=== PATIENT | female | born 2000 | race Caucasian/White ===

== ENCOUNTER 2024-12-13 16:08 | Outpatient (CLI) | payer OTHER, SELFPAY | END 2024-12-13 16:09 | disposition home or self-care (01) | LOC: AMB 12-14 10:48 | PROVIDERS: Visit Provider Family Medicine | DX: R11.2 Nausea with vomiting, unspecified (principal); R19.7 Diarrhea, unspecified | CPT/HCPCS: A0425; A0433 ==

== ENCOUNTER 2024-12-13 16:59 | Emergency (ER) | payer OTHER, SELFPAY ==
[2024-12-13] VITALS (11 sets, daily range): BP systolic 81–100; BP diastolic 51–70; PULSE 98–109; RESP 20; TEMP 36.6; O2SAT 94–97; BMI 19.0
--- OUTSIDE RECORDS SUMMARY | 2024-12-13 17:08 | XMS_ITS | Clinical Summary ---
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 For routine questions regarding patient records, call [phone] during business hours, M-F 8:00 AM - 5:00 PM Central Time. Record requests for emergency care only can be directed to [phone] at any time.[facility] Allergies No known active allergies Medications Low-Ogestrel, 28, 0.3-30 mg-mcg per tablet Take 1 tablet by mouth daily. Active Immunizations Immunization Administration Dates Next Due 4vHPV (discontinued) 02/25/2015,01/14/2015 9vHPV 07/01/2015 DTaP (Infanrix, Tripedia) 09/23/2007,,2002,2001,2002 HepA Pediatric/Adolescent 03/13/2013,07/18/2010 Hib-HepB 06/14/2003,2002,2002 IPV 09/23/2007, 3,2002,2001 Influenza, Injectable, Quadrivalent 05/17/2017,1 MCV4 (Menveo) 03/26/2020,03/13/2013 MMR 09/23/2007,2003 MenB (BEXSERO) 05/19/2023,03/26/2020 PCV7 (discontinued) 2003, 3,2002,2001 Rabies (Rabavert) 08/06/2023,07/29/2023 Tdap 05/19/2023,03/13/2013 TyVi (inj) 07/29/2023 WINTER 09/23/2007,2003 YF 07/29/2023 influenza vaccine quad (FLUZONE/FLUARIX) (6 months and older)(PF) 05/19/2023,05/20/2015,06/04/2014,2012,05/25/2011,05/19/2010 Family History Medical History Relation Name Comments Melanoma Mother monique Relation Name Status Comments Mother monique Social History Tobacco Use Types Packs/Day Years Used Date Smoking Tobacco: Never Smokeless Tobacco: Never Alcohol Use Standard Drinks/Week Comments Yes 6 (1 standard drink = 0.6 oz pur e alcohol) Overall Financial Resource Strain (CARDIA) Answe r Date Recorded How hard is it for you to pa y for the very basics like food, housing, medical care, and heating? Not hard at all 05/19/2023 PHQ-2 Answer Date Recorded PHQ-2 Score 0 05/19/2023 Exercise Vital Sign Answer Date Recorde d On average, how many days pe r week do you engage in moderate to strenuous exercise (like a brisk walk)? 5 days Minutes of Exercise per Session Not on file 05/19/2023 Hunger Vital Sign Answer Date Recorded Within the past 12 months, y ou worried that your food would run out before you got the money to buy more. Never true 05/19/20 23 Within the past 12 months, t he food you bought just didn't last and you didn't have money to get more. Never true 05/19/2023 PRAPARE - Transportation Answer Date Re corded In the past 12 months, has l ack of transportation kept you from medical appointments or from getting medications? No 11/2022 In the past 12 months, has l ack of transportation kept you from meetings, work, or from getting things needed for daily living? No 05/19/2023 Nutrition Answer Date Recorded Nutrition: EVOO Fat Source Unknown 05/19 On average, how many serving s of fruits and vegetables do you eat per day (serving size is equal to 1 cup or approximately the size of a tennis ball)? 0-2 05/19/2023 Dental Answer Date Recorded Dental: Regular Dentist Yes 05/19/20 Employment Answer Date Recorded Employment status Unemployed/not in e paid workforce and NOT seeking employment 05/19/2023 Housing Stability Answer Date Recorded What is your living situation today? I have a [facility] place to live 05/19/2023 Comments Unknown Sex and Gender Information Value Date Recorded Sex Assigned at Female 05/19/2023 12:31 PM CDT Legal Sex Female 12:14 PM CDT Gender Identity Female 05/19/2023 12:31 PM CDT Sexual Orientation Straight 05/19/2023 12 :31 PM CDT Last Filed Vital Signs Vital Sign Reading Time Taken Comments Blood Pressure 117/79 05/19/2023 12:31 PM CDT Pulse 76 05/19/2023 12:31 PM CDT Temperature 37.1 C (98.8 F) 05/19/2023 12:31 PM CDT Respiratory Rate - - Oxygen Saturation - - Inhaled Oxygen Concentration - - Weight 58.2 kg (128 lb 4.9 oz) 05/19/2023 12:31 PM CDT Height 173 cm (5' 8.11) 05/19/2023 12:31 PM CDT Body Mass Index 19.45 05/19/2023 12:31 PM CDT Plan of Treatment Health Maintenance Due Date Last Done Comments Cervical/Vaginal Cancer Screening 2002 HIV Screening 2002 Hepatitis C Screening 2002 COVID-19 Vaccine ( season) 2024 Influenza Vaccine (#1) 2024 , 05/17/2017, 05/18/2016, Additional history exists Chlamydia and Gonorrhea Screening 05/19/2024 05/19/2023 Depression Screening (Annual PHQ-2) 08/16/2024 DTaP,Tdap,and Td Vaccines (8 - Td or Tdap) 05/19/2033 05/19/2023, 03/13/2013, 09/23/2007, Additional history exists Pneumococcal vaccine (0-49 years) Aged Out 2003, 2002, 2002, Additional history exists No longer eligible based on patient's age to complete this topic Hepatitis B Vaccines Completed 06/14/2003, 2002, 2002 IPV Vaccines Completed 09/23/2007, /01/2003, 2002, Additional history exists HPV Vaccines Completed 07/01/2015, 02/13, 01/14/2015 Meningococcal Vaccine Completed 03/26/2020, 013 MenB Vaccine Completed 05/19/2023, 03/26/2020 Procedures Procedure Name Priority Date/Time Associated Diagnosis Comments CHLAMYDIA/GONORRHOE AE AMPLIFIED RNA Routine 05/19/2023 1:50 PM CDT General Medical Examination Adult from Last 3 Months or Most Recently Relevant to Health Maintenance Results * Chlamydia / Gonorrhoeae Amplified RNA (05/19/2023 1:50 PM CDT) Source Urine, Urine, First Voided 05/19/2023 10:58 PM CDT MKTO Chlamydia trachomatis amplified RNA Negative Negative 05/19/2023 10:58 PM CDT MKTO Source Urine, Urine, First Voided 05/19/2023 10:58 PM CDT MKTO Neisseria gonorrhoeae amplified RNA Negative Negative 05/19/2023 10:58 PM CDT MKTO Urine (Urine, First Voided) 05/19/2023 1:50 PM CDT 05/19/2023 6:59 PM CDT us Cayetano Del Valle M.D. LAB MICROBIOLOGY - GENERA L ORDERABLES Final Result [facility] [address] [place] [address], [place] [facility] [address] [address] from Last 3 Months or Most Recently Relevant to Health Maintenance Care Teams Aircraft Accessories Mechanic Relationship Specialty Start Date End Date Elsewhere, Pcp PCP - General Internal Medicine 05/19/23
--- OUTSIDE RECORDS SUMMARY | 2024-12-13 17:08 | XMS_ITS | Clinical Summary ---
Author Organization [facility] Address [address] [place] [id number] Care Team Providers Care Raise Miner Name Role Phone Pcp, No Primary Care Provider Unavailabl e Allergies No known active allergies Medications azelaic acid 15 % gel Apply 50 g topically to affected area(s) two times daily. 5 Active ketoconazole 2 % cream Apply 60 g topically to affected area(s) once daily. 5 Active spironolactone 50 mg tablet Take 50 mg by mouth once daily. 5 Active terbinafine HCL 250 mg tabletIndicati ons:Tinea corporis Take 1 Tablet (250 mg) by mouth once daily. 14 Tablet 5 Active clotrimazole 1 % creamIndicatio ns:Tinea corporis,Tinea cruris Apply topically to affected area(s) two times daily. For at least 2 weeks. 113 g 2 5 Active atovaquone-pro guanil, 250-100 mg, (MALARONE) 250-100 mg tabletIndicati ons:Pharmacolo gic therapy Take 1 Tablet by mouth once daily. Begin 1-2 days before and continue until 1 week after exposure for prevention of malaria. 90 Tablet 3 11/24/19 25 Discontinu ed(*Patien t states no longer taking) norgestrel-eth inyl estradiol, 0.3-30 mg-mcg, (Low-Ogestrel) 0.3-30 mg-mcg tabletIndicati ons:Irregular menses TAKE 1 TABLET BY MOUTH EVERY DAY (INS LIMITS DAY SUPPLY) 84 Tablet 4 11/24/19 25 Discontinu ed(*Patien t states no longer taking) terbinafine HCL 250 mg tabletIndicati ons:Tinea corporis Take 1 Tablet (250 mg) by mouth once daily. 14 Tablet 5 12/14/19 25 Discontinu ed(Reorder (E-cancel not sent)) Active Problems Problem Noted Date Diagnosed Date Irregular menses 12/06/2018 Encounters Date Type Department Care Team Description 12/13/2024 7:45 AM CDT Office Visit [facility] [address] [place] [address] China Khalil MD Physical (24 year old ); Rash (spreading ) 12/13/2024 Nurse Triage [facility] [address] [place] [address] China Khalil MD Vomiting; Diarrhea 12/13/2024 Travel 11/23/2024 1:15 PM CDT Office Visit [facility] [address] [place] [address] Pat Juares PA Rash 11/23/2024 Travel from Last 3 Months Immunizations Immunization Administration Dates Next Due DTaP 09/23/2007, 3,2002,07/16,2002 HIB-HepB (Comvax) 06/14/2003,2002,05/04/20 02 HPV 9 (Gardasil 9) 07/01/2015 Hepatitis A (Peds) 03/13/2013,07/18/2010 Human Papilloma Virus Vaccine 02/25/2015, 015 Inactivated Polio Vaccine 09/23/2007,01/2003,2002,04/16 Influenza A (H1N1), Inactivated 09/09/2009,08/13 Influenza A (H1N1), Inactiva mandi (Age >=3 Years) 09/09/2009,08/13/2009 Influenza, IIV3 (Age >=3 years) 06/01/2010,07/19,06/19/2008 Influenza, IIV4 05/19/2023 Influenza, IIV4 (=>6mos) MDV 05/17/2017,05/18/20 16 Influenza,LAIV3 Live Intrana wes (Flumist) 05/25/2011,05/19/2010 Influenza,LAIV4 Live Intrana wes (Flumist) 05/20/2015,06/04/2014,05/22/2013,05/16,05/19/2010 MENINGOCOCCAL VACCINE 2 VIAL [id number] (MENVEO) 03/26/2020,03/13/2013 MMR 09/23/2007,2003 Meningococcal B 05/19/2023,03/26/2020 04/23/2020 Pneumococcal conj 7-Valent ( Prevnar 7) 2003,2002,2002,04/16 Rabavert 08/06/2023,07/29/2023 Tdap 05/19/2023,03/13/2013 Typhoid (injectable) 07/29/2023 Varicella Vaccine 09/23/2007,2003 Yellow Fever 07/29/2023 Family History Medical History Relation Name Comments Good Health Father Good Health Maternal Grandfather Hyperlipidemia Maternal Grandmother Good Health Mother Unknown Paternal Grandfather Unknown Paternal Grandmother Relation Name Status Comments Brother 1 Alive Brother 2 Alive step Father Alive Maternal Grandfather Alive Maternal Grandmother Alive Mother Alive Paternal Grandfather Alive Paternal Grandmother Alive Sister Alive step Social History Tobacco Use Types Packs/Day Years Used Date Smoking Tobacco: Never Smokeless Tobacco: Never Tobacco Cessation:Counseling Given: No Comments:no exposure Alcohol Use Standard Drinks/Week Comments Yes 0 (1 standard drink = 0.6 oz pur e alcohol) weekends PHQ-2 Answer Date Recorded PHQ-2 TOTAL SCORE 0 12/13/2024 Alcohol Use Answer Date Recorded How often do you have a drink containing alcohol ? 3 12/13/2024 How many drinks containing a lcohol do you have on a typical day when you are drinking? 1 12/13/2024 How often do you have five or more drinks on one occasion? 0 12/13/2024 Financial Resource Strain Answer Date R ecorded Difficulty of Paying Living Expenses Not on file 08/16/2021 Difficulty of Paying Living Expenses Not on file 08/16/2021 Comments No Sex and Gender Information Value Date Recorded Sex Assigned at Female 12/28/2023 10:00 AM CDT Legal Sex Female 5:18 AM OFFICE SERVICES REPRESENTATIVE Gender Identity Female 12/28/2023 10:00 AM CDT Sexual Orientation Straight 12/28/2023 10 :00 AM CDT Travel History Travel Start Travel End [facility] [place] 11/14/2024 12/12/2024 Obstetrics History Para Term AB IAB SAB Ectopic Multiple Livin g Live Births 0 0 0 0 0 0 0 0 0 0 Last Filed Vital Signs Vital Sign Reading Time Taken Comments Blood Pressure 112/82 12/13/2024 8:02 AM CDT Pulse 99 12/13/2024 8:02 AM CDT Temperature 36.8 C (98.3 F) 02/13/2019 1:45 PM CDT Respiratory Rate 24 05/15/2011 3:49 PM CDT Oxygen Saturation 100% 12/13/2024 8:02 AM CDT Inhaled Oxygen Concentration - - Weight 57.2 kg (126 lb) 12/13/2024 8:02 AM CDT Height 172.7 cm (5' 8) 12/13/2024 8:02 AM CDT Body Mass Index 19.16 12/13/2024 8:02 AM CDT Plan of Treatment Health Maintenance Due Date Last Done Comments HIV for age 15-65 2017 Hepatitis C screening for age 18-79 2020 Chlamydia for age 16-24 09/05/2022 09/05/2021, 03/26 Pap test for age 21-65 2023 COVID-19 vaccine series ( season) 2024 Influenza Vaccine (Season Ended) 2025 05/19/2023, 05/17/2017, 05/18/2016, Additional history exists BMI (ht and wt on same day) for age 18+ 12/13/2025 12/13/2024, 07/29/2023, 03/21/2021, Additional history exists Depression screening for age 12+ 12/13/2025 12/13/2024, 12/13/2024, 07/29/2023, Additional history exists Tetanus booster 05/19/2033 05/19/2023, 03/13/2013 Pneumococcal series for age 6-49 Aged Out 2003, 2002, 2002, Additional history exists No longer eligible based on patient's age to complete this topic HPV series for age 9-26 Completed 07/01/20 15, 02/25/2015, 01/14/2015 Tdap Completed 05/19/2023, 03/13/2013 Procedures Procedure Name Priority Date/Time Associated Diagnosis Comments GC CHLAMYDIA TRACH PROBE Routine 09/05/2021 10:05 AM OFFICE SERVICES REPRESENTATIVE Screening for chlamydial disease from Last 3 Months or Most Recently Relevant to Health Maintenance Results * GC CHLAMYDIA TRACH PROBE [[id number]] (09/05/2021 10:05 AM OFFICE SERVICES REPRESENTATIVE) CHLAMYDIA PROBE Negative 9:35 PM OFFICE SERVICES REPRESENTATIVE [facility] N GONORRHOEAE PROBE Negative 09/05/2021 9:35 PM OFFICE SERVICES REPRESENTATIVE [facility] Other URINE SPECIMEN / Unknown Non-Blood / Unknown 09/05/2021 10:05 AM OFFICE SERVICES REPRESENTATIVE 09/05/2021 10:15 AM OFFICE SERVICES REPRESENTATIVE us Vanessa TORIBIO MICROBIOLOGY Final Result [facility] [address] [place] [address], [place] from Last 3 Months or Most Recently Relevant to Health Maintenance Insurance [facility] [employer] Care Teams Raise Miner Relationship Specialty Start Date End Date Pcp, No . PCP - General 11/23/24
--- NOTE | 2024-12-13 17:13 | ED_ITS ---
HPI - General Adult General Date Seen: 12/13/24 Chief complaint: Nausea/Vomiting Stated complaint: serve dehydration Time Seen by Provider: 12/13/24 17:12 History of Present Illness HPI narrative: 24 yo generally healthy F presenting to the emergency department today by EMS for several hours of repetitive nausea, vomiting, and diarrhea. History is obtained partly from the patient and partly from her mother and father who accompany her to the ER. The she is generally healthy except for she has had a rash affecting the skin of her groin and tops of her thighs for the past 5 or 6 weeks. She has been working with her doctors [facility] to treat that and has been diagnosed on clinic evaluation for tinea cruris. She had been on some oral terbinafine but it has not quite resolved yet so her doctors prescribed a new cream that she can use today. 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 She had been in [facility] about a couple of months ago prior to onset of the rash. More recently she had been traveling to [facility]. She arrived home from [facility] yesterday. Beginning this afternoon at about 2:00 a.m. she started having nausea and had multiple episodes of nonbilious, nonbloody emesis. She also had multiple episodes of watery brown liquidy diarrhea. No bloody or mucousy stools. No fever or chills. She was feeling weak, dizzy, and lightheaded. She cannot stop throwing up. 911 was called. EN route they were able to establish an IV and they gave her 8 mg of Zofran and a dose of droperidol. She says she is now feeling better and would like to drink something. She did eat the ice in [facility] and drink some water but otherwise had no suspicious food exposure. She does have redness of the skin of her face but says she was out in the sun and probably got a sunburn while she was in [facility]. Related Data Home Medications ?Medication ?Instructions ?Recorded ?Confirmed spironolactone 50 mg tablet 50 mg PO DAILY 10/30/24 12/13/24 azelaic acid 15 % topical gel topical QPM 12/13/24 terbinafine HCl 250 mg tablet 250 mg PO DAILY 12/13/24 12/13/24 Previous Rx's ?Medication ?Instructions ?Recorded ketoconazole 2 % topical cream 1 applic topical BID #60 grams 11/09/24 Allergies Allergy/AdvReac Type Severity Reaction Status Date / Time No Known Drug Allergies Allergy Verified 12/13/24 17:08 [facility] Social History Smoking Status: Current some day smoker Do you use any of these nicotine containing products: Vaping Products Second hand tobacco smoke exposure: No How often do you have a drink containing alcohol: 2-4 times a month AUDIT-C Alcohol total score: 2 Non-prescribed substance use: denies use Exam Narrative: Exam Narrative: Constitutional: Appears well-developed and well-nourished. Alert. Covered up in her blankets and her parents are helping talk in her legs is and room. She is laying on her left lateral decubitus position but is able to roll over to her back for exam.. Non toxic. HENT: Head: Atraumatic. Nose: Nose normal. Mouth/Throat: Oral mucosa is clear but dry. They are not desiccated or cracked.. no trismus. Pharynx normal. Tonsils symmetric. No tonsillar enlargement, erythema, or exudate. Eyes: Conjunctivae normal. EOM normal. Pupils equal, round, and reactive to light. No scleral icterus. Neck: Normal range of motion. Neck supple. No tracheal deviation present. Cardiovascular: Normal rate, regular rhythm. No gallop. No friction rub. No murmur heard. Symmetric radial artery pulses Pulmonary/Chest: Effort normal. No stridor. No respiratory distress. No wheezes. No rales. No rhonchi . No tenderness. Abdominal: Soft. Bowel sounds normal. No distension. No mass. No tenderness. No rebound. No guarding. No CVA tenderness. Musculoskeletal: RUE: Normal range of motion. No tenderness. No deformity LUE: Normal range of motion. No tenderness. No deformity RLE: Normal range of motion. No edema. No tenderness. No deformity LLE: Normal range of motion. No edema. No tenderness. No deformity Neurological: Alert and oriented to person, place, and time. Normal strength. CN II-VII intact. No sensory deficit. GCS eye subscore is 4. GCS verbal subscore is 5. GCS motor subscore is 6. Normal coordination Skin: She does have an erythematous skin on her face and upper torso which she says is from sun exposure when she was traveling. Evaluation of the skin of her proximal thighs and groin was taken with her mother in the room. She does have slightly scaly macular lesions there was that do appear to be consistent tinea cruris. They are actually a little bit hypopigmented compared to the rest of the skin of her thighs which is tanned. Otherwise Skin is warm and dry. No rash noted. No pallor. Normal capillary refill. Psychiatric: Normal mood. Normal affect. Const: Vital Signs, click to edit/add: Vital Signs - 24 hr 12/13/24 17:08 12/13/24 17:15 12/13/24 17:16 Temperature 98 F Pulse Rate 98 109 H Pulse Rate [Pulse Oximeter] 104 H Respiratory Rate 20 Blood Pressure 81/69 L Blood Pressure [Ri ght Upper Arm] 92/70 Pulse Oximetry 94 95 94 Oxygen Delivery Me thod Room Air 12/13/24 17:17 12/13/24 17:30 12/13/24 17:32 Temperature Pulse Rate 107 H 102 H 99 Pulse Rate [Pulse Oximeter] Respiratory Rate Blood Pressure 84/55 L Blood Pressure [Ri ght Upper Arm] Pulse Oximetry 96 97 97 Oxygen Delivery Me thod 12/13/24 17:47 12/13/24 18:01 12/13/24 18:16 Temperature Pulse Rate Pulse Rate [Pulse Oximeter] Respiratory Rate Blood Pressure 100/64 97/51 L 94/56 L Blood Pressure [Ri ght Upper Arm] Pulse Oximetry Oxygen Delivery Me thod 12/13/24 18:31 12/13/24 18:46 Temperature Pulse Rate Pulse Rate [Pulse Oximeter] Respiratory Rate Blood Pressure 96/53 L 92/61 Blood Pressure [Ri ght Upper Arm] Pulse Oximetry Oxygen Delivery Me thod Course Course ED Course: Recheck-passed p.o. challenge. Feeling well. She is eager for discharge. Vital Signs Vital signs: Initial Vital Signs Temperature 98 F 12/13/24 17:08 Temperature Source Oral 12/13/24 17:08 Pulse Rate 104 H 12/13/24 17:08 Respiratory Rate 20 12/13/24 17:08 Blood Pressure 92/70 12/13/24 17:08 Blood Pressure Mean 77 12/13/24 17:08 Blood Pressure Position Sitting 12/13/24 17:08 Pulse Oximetry 94 12/13/24 17:08 Oxygen Delivery Method Room Air 12/13/24 17:08 Vital Signs Temperature 98 F 12/13/24 17:08 Pulse Rate 104 H 12/13/24 17:08 Respiratory Rate 20 12/13/24 17:08 Blood Pressure 92/70 12/13/24 17:08 Pulse Oximetry 94 12/13/24 17:08 Oxygen Delivery Method Room Air 12/13/24 17:08 Temperature 98 F 12/13/24 17:08 Pulse Rate 99 12/13/24 17:32 Respiratory Rate 20 12/13/24 17:08 Blood Pressure 92/61 12/13/24 18:46 Pulse Oximetry 97 12/13/24 17:32 Oxygen Delivery Method Room Air 12/13/24 17:08 Medications Administered Medications: Discontinued Medications Generic Name Dose Route Start Last Admin Trade Name Freq PRN Reason Stop Dose Admin Sodium Chloride 1,000 mls @ 1,000 mls/hr 12/13/24 17:30 12/13/24 18:13 0.9 % Sodium Chloride 1000 Ml IV 12/13/24 18:29 Infused .Q1H KEVIN Infusion Medical Decision Making [facility] Narrative Medical decision making narrative: This patient presents with vomiting and diarrhea that began a couple of hours prior to arrival.. The patient's symptoms and exam could be consistent with a viral GI infection. However with recent for travel, differential is broad including other food borne illnesses, or staphylococcal toxin producing diarrhea. There is no high fever, severe pain, bilious or bloody emesis, blood or mucous in the stool, severe abdominal pain, or other concerning signs for a bacterial infection. No recent travel or high risk exposure for baceraial pathogen. No recent antibiotics or risk factors for C. diff. I don't see any evidence for appendicitis, bowel obstruction, abscess, bowel perforation, or other surgical emergency. Labs show no concerning electrolyte disturbance or renal failure, however she does have a marked leukocytosis with a white count of 20 and a neutrophil predominance. Her diarrhea has stopped now that she is here in the ER and she cannot provide a stool sample. Given recent travel and white count will order a stool out for her to look for bacterial enteritis. Would hold off on any empiric antibiotics until we get a definite pathogen. After meds given the patient is feeling much better. At this point, the patient is non-septic appearing and well hydrated.I think the patient can be managed as an outpatient. We have discussed oral rehydration strategies. They understand and can perform the needed interventions at home. I have provided a prescription for antiemetics to facilitate oral hydration -Zofran 0DT through [facility] We have discussed the signs and symptoms of worsening dehydration. They understand the need for immediate reevaluation if any of these symptoms occur. They are also directed to obtain close outpatient follow up within 1-2 days. Lab Data Labs: Lab Results 12/13/24 Range/Units 17:46 WBC 20.64 H (4.50-11.00) K/uL RBC 5.15 (4.00-5.20) m/uL Hgb 15.4 (12.0-16.0) gm/dL Hct 45.9 (33.0-51.0) % MCV 89 (80-100) fL MCH 30 (26-34) pg MCHC 34 (32-36) gm/dL RDW Coeff of Fercho 12.8 (11.5-15.5) % Plt Count 261 (140-440) K/uL Neut % (Auto) 93.8 H (42.0-72.0) % Lymph % (Auto) 1.9 L (20-44) % [place] % (Auto) 4.1 (0.0-11.0) % Eos % (Auto) 0.0 (0.0-7.0) % Baso % (Auto) 0.1 (0.0-3.0) % Neut # (Auto) 19.40 H (1.7-7.0) K/uL Lymph # (Auto) 0.40 L (0.90-2.90) K/uL [place] # (Auto) 0.80 (0.00-0.90) K/UL Eos # (Auto) 0.00 (0.00-0.50) K/uL Baso # (Auto) 0.00 (0.00-0.30) K/uL Abs Immat Gran (auto) 0.00 (0.00-0.30) K/uL Imm/Tot Granulo (auto) 0.1 % Sodium 139 (135-149) mmol/L Potassium 4.8 (3.6-5.1) mmol/L Chloride 102 (96-114) mmol/L Carbon Dioxide 22 (20-32) mmol/L Anion Gap 15 (7-15) mEq/L BUN 16 (5-24) mg/dL Creatinine 1.0 (0.5-1.5) mg/dL Estimated Creat Clear 78.98 Estimated GFR 82 ml/min Glucose 152 H (60-115) mg/dL Lactate 2.1 H (0.5-1.9) mmol/L Calcium 9.4 (8.4-10.6) mg/dL Total Bilirubin 0.8 (0.1-1.5) mg/dL AST 26 (12-35) U/L ALT 19 (4-35) U/L Alkaline Phosphatase 68 (40-150) U/L Total Protein 8.5 H (6.0-8.3) g/dL Albumin 5.3 H (3.3-5.0) g/dL HCG, Qual Negative (Negative) Discharge Plan Discharge Clinical Impression: Vomiting and diarrhea, Leukocytosis Patient Disposition: Home, Self-Care Condition: Stable Instructions: Acute Nausea and Vomiting (DC), Acute Diarrhea (ED) Additional Instructions: As we discussed, at this time we do not know the exact cause of your vomiting and diarrhea. If you have ongoing diarrhea, please bring a stool sample back to the [facility] lab so we can run a stool culture to look for bacterial infections. In the meantime use the nausea medicine as needed to help treat nausea. Drink plenty of fluids and stay hydrated. At solid foods when you feel up to it. If your symptoms are caused by a viral infection they should get better and be gone over the next 24-48 hours. If you have symptoms persisting longer than that, return to the ER or see your doctor for recheck. If you get worse, for instance high fever, severe abdominal pain, bloody vomit or diarrhea, weakness, uncontrolled vomiting or dehydration, return to the emergency department right away. Prescriptions: No Action spironolactone 50 mg tablet 50 mg PO DAILY ketoconazole 2 % cream 1 applic topical BID Qty: 60 1RF Rx Instructions: Apply to affected area twice daily for a minimum of 7 days. Ensure application extends 1 beyond border of lesion(s) to ensure adequate coverage. OK to apply for up to 2 weeks if improvement noted. terbinafine HCl 250 mg tablet 250 mg PO DAILY azelaic acid 15 % gel topical QPM Follow Up/Referrals: Provider,Not a Local [Primary Care Provider] - Stand Alone Forms: MyHealth Info Instructions
--- OUTSIDE RECORDS SUMMARY | 2024-12-13 17:33 | XMS_ITS | Clinical Summary ---
Author Organization [facility] Address [address] [place] [id number] Care Team Providers Care Mounter Automatic Name Role Phone Pcp, No Primary Care [...] Description 12/13/2024 7:45 AM CDT Office Visit [facility] [address] [place] [address] China Khalil MD Physical (24 year old ); Rash (spreading ) 12/13/2024 Nurse Triage [facility] [address] [place] [address] China Khalil MD Vomiting; Diarrhea 12/13/2024 Travel 11/23/2024 1:15 PM CDT Office Visit [facility] [address] [place] [address] Pat Juares PA Rash 11/23/2024 Travel from [...] AM CDT Legal Sex Female 5:18 AM [employer] Gender Identity Female 12/28/2023 10:00 AM CDT Sexual Orientation Straight 12/28/2023 10 :00 AM CDT Travel History Travel Start Travel End [facility] 11/14/2024 12/12/2024 Obstetrics History Para Term AB [...] CHLAMYDIA TRACH PROBE Routine 09/05/2021 10:05 AM [employer] Screening for chlamydial disease from Last 3 Months or Most Recently Relevant to Health Maintenance Results * GC CHLAMYDIA TRACH PROBE [[id number]] (09/05/2021 10:05 AM [employer]) CHLAMYDIA PROBE Negative 9:35 PM [employer]ENS [employer] [facility] N GONORRHOEAE PROBE Negative 09/05/2021 9:35 PM [employer]ENS [employer] HAND [facility] Other URINE SPECIMEN / Unknown Non-Blood / Unknown 09/05/2021 10:05 AM [employer] 09/05/2021 10:15 AM [employer] us Vanessa TORIBIO MICROBIOLOGY Final Result [facility] [address] [place] [address], [place] from Last 3 Months or Most Recently Relevant to Health Maintenance Insurance [facility] Care Teams Mounter Automatic Relationship Specialty Start Date End Date Pcp, No . PCP - General 11/23/24
--- OUTSIDE RECORDS SUMMARY | 2024-12-13 17:33 | XMS_ITS | Clinical Summary ---
Author Organization [facility] Address [address] [place] [id number] Care Team Providers Care Public Health Clinical Nurse Specialist Name Role Phone Elsewhere, Pcp Primary Care Provider Unavailabl e Source Comments Patient records contain information from all sites at [facility]. For routine questions regarding patient records, call [phone] during business hours, M-F 8:00 AM - 5:00 PM Central Time. Record requests for emergency care only can be directed to [phone] at any time.[facility] Allergies No known active allergies Medications Low-Ogestrel, [...] your living situation today? I have a [facility] place to live 05/19/2023 Comments Unknown Sex [...] MICROBIOLOGY - GENERA L ORDERABLES Final Result [facility] [address] [place] [address], [facility] [address] [address] from Last 3 Months or Most Recently Relevant to Health Maintenance Care Teams Public Health Clinical Nurse Specialist Relationship Specialty Start Date End Date Elsewhere, Pcp PCP - General Internal Medicine 05/19/23
[2024-12-13] MEDS: 0.9 % SODIUM CHLORIDE 1000 ml 1,000 ML IV (17:37)
[2024-12-13 17:51] LABS: Lactate* 2.1 mmol/L (0.5-1.9)
[2024-12-13 18:01] LABS: Basophils Percent Auto 0.1 % (0.0-3.0); Hematocrit 45.9 % (33.0-51.0); Hemoglobin* 15.4 gm/dL (12.0-16.0); Immature Granulocytes Pct Auto 0.1 %; Lymphocytes Percent Auto 1.9 % (20-44); Mean Corpuscular HGB Conc 34 gm/dL (32-36); Mean Corpuscular Hemoglobin 30 pg (26-34); Mean Corpuscular Volume 89 fL (80-100); Monocytes Percent Auto 4.1 % (0.0-11.0); Neutrophils Percent Auto 93.8 % (42.0-72.0); Platelet Count* 261 K/uL (140-440); RDW Coefficient of Variation % 12.8 % (11.5-15.5); Red Blood Count 5.15 m/uL (4.00-5.20); White Blood Count* 20.64 K/uL (4.50-11.00)
[2024-12-13 18:06] LABS: Albumin* 5.3 g/dL (3.3-5.0); Chloride* 102 mmol/L (96-114); Potassium* 4.8 mmol/L (3.6-5.1); Sodium* 139 mmol/L (135-149)
[2024-12-13 18:08] LABS: Blood Urea Nitrogen* 16 mg/dL (5-24); Est. Creatinine Clearance* 78.98; Estimated Glomerular Filt Rate 82 ml/min
[2024-12-13 18:09] LABS: Alanine Aminotransferase* 19 U/L (4-35); Alkaline Phosphatase* 68 U/L (40-150); Anion Gap 15 mEq/L (7-15); Aspartate Amino Transferase* 26 U/L (12-35); Bilirubin Total* 0.8 mg/dL (0.1-1.5); Calcium* 9.4 mg/dL (8.4-10.6); Carbon Dioxide* 22 mmol/L (20-32); Glucose* 152 mg/dL (60-115); Total Protein* 8.5 g/dL (6.0-8.3)
[2024-12-13 18:12] LABS: Slide Review Reflex No
[2024-12-13 18:17] LABS: HCG Qualitative Serum* Negative (Negative)
== END 2024-12-13 18:58 | disposition home or self-care (01) ==
PROVIDERS: Emergency Provider Emergency Medicine
DX: R11.10 Vomiting, unspecified (principal); R19.7 Diarrhea, unspecified; D72.829 Elevated white blood cell count, unspecified
CPT/HCPCS: 36415; 80053; 83605; 84703; 85025; 87045; 87046; 87427; 99283; 99284; J7030

== ENCOUNTER 2025-02-11 12:45 | Outpatient (CLI) | payer OTHER, SELFPAY | END 2025-02-11 12:46 | disposition home or self-care (01) | LOC: NFLDREF 02-13 22:51 | PROVIDERS: Visit Provider Nurse Practitioner Family | DX: R30.0 Dysuria (principal); R82.90 Unspecified abnormal findings in urine | CPT/HCPCS: 87086 ==